=== PATIENT | female | born 1995 | race Caucasian/White ===

== ENCOUNTER 2017-07-20 14:18 | Emergency (ER) | payer OTHER ==
[~2017-07-20] VITALS: Ht 154.9 cm; Wt 75.9 kg
[~2017-07-20 14:18] MED LIST: IBUPROFEN800 MG PO; Motrin PO; Natalcare Rx,Pramile PO; PRENATAL TABLE1 EAC3 PO
[2017-07-20 14:37] LABS: HEMATOCRIT 43.6 % (36.0-46.0); HEMOGLOBIN 14.7 G/DL (11.9-15.5); MCH 29.9 PG (29.0-34.0); MCHC 33.7 G/DL (30.0-36.0); MCV 88.6 FL (83-99); PLATELET COUNT 244 K/uL (156-360); RBC DIS.WIDTH-CV 13.2 % (11.8-14.6); RBC DIS.WIDTH-SD 42.5 % (39-53); RED BLOOD COUNT 4.92 M/uL (3.80-5.20); WHITE BLOOD COUNT 8.4 K/uL (4.1-10.2)
[2017-07-20 14:47] LABS: ALBUMIN 4.5 g/dL (3.2-4.8); CHLORIDE 107 mEq/L (99-109); POTASSIUM 3.7 mEq/L (3.7-5.4); SODIUM 140 mEq/L (136-147)
[2017-07-20 14:50] LABS: GLUCOSE 105 mg/dL (70-99); TOTAL PROTEIN 7.7 g/dL (6.4-8.3)
[2017-07-20 14:51] LABS: TOTAL BILIRUBIN 0.4 mg/dL (0.0-1.0)
[2017-07-20 14:53] LABS: ALKALINE PHOSPHATASE 85 IU/L (3-129); CREATININE 0.7 mg/dL (0.6-1.3); GFR ESTIMATE (CALCULATED) > 59 mL/min/
[2017-07-20 14:54] LABS: UREA NITROGEN (BUN) 13 mg/dL (9-23)
[2017-07-20 14:55] LABS: AST (GOT) 9 IU/L (2-34); DIRECT BILIRUBIN 0.2 mg/dL (0.0-0.3)
[2017-07-20 14:56] LABS: ALT (GPT) 9 IU/L (3-49)
[2017-07-20 14:57] LABS: LIPASE 27 U/L (1.0-51.0)
[2017-07-20 15:03] LABS: QUANTITATIVE HCG < 4.0 MIU/ML
[2017-07-20 15:20] LABS: APPEARANCE SL.HAZY ((CLEAR)); BILIRUBIN NEGATIVE; BLOOD NEGATIVE; COLOR YELLOW ((YELLOW)); GLUCOSE (STRIP) NEGATIVE; KETONES NEGATIVE; LEUKOCYTES LARGE; NITRITE NEGATIVE; PROTEIN (STRIP) 30
[2017-07-20 15:28] LABS: BACTERIA RARE /HPF; EPITHELIAL CELLS RARE /HPF; MUCUS 2+ /LPF; UCUL ADDED? YES; WHITE BLOOD CELLS TNTC /HPF (0-5)
[2017-07-20] MEDS ORDERED: BACTRIM,SEPT1 TABLET PO (16:25)
[2017-07-20 16:34] VITALS: BP 136/70
== END 2017-07-20 16:35 | disposition home or self-care (01) ==
LOC: EME 14:18
PROVIDERS: Emergency Medicine
DX: N39.0 Urinary tract infection, site not specified (principal)
CPT/HCPCS: 74176; 76705; 80048; 80076; 81003; 83690; 84702; 85027; 87086; 99281; 99284